=== PATIENT | female | born 1980 | race Caucasian/White ===

== ENCOUNTER 2024-10-18 09:54 | Outpatient (CLI) | payer BC, SELFPAY ==
[2024-10-18 12:26] LABS: Abs Immature Grans 0.03 10^3/uL (0.0-0.06); Absolute Basophil Count 0.03 10^3/uL (0.0-0.2); Absolute Lymphocyte Count 2.82 10^3/uL (1.2-3.4); Absolute Monocyte Count 0.53 10^3/uL (0.1-0.8); Basophils % 0.4 %; Eosinophils % 1.4 %; HCT 41.2 % (36.0-46.0); HGB 13.6 g/dL (11.2-15.7); Immature Grans % 0.4 %; Lymphocytes % 38.6 %; MCH 29.6 pg (27.0-33.0); MCV 90 fL (80-95); MPV 9.2 fL (8.0-11.0); Monocytes % 7.3 %; Neutrophils % 51.9 %; Platelet Count 338 10^3/uL (130-400); RBC 4.59 10^6/uL (3.93-5.22); RDW 11.7 % (11.7-14.6); RDW-SD 37.7 fL; WBC 7.31 10^3/uL (4.4-10.8)
[2024-10-18 12:49] LABS: ALT 26 U/L (14-59); AST 16 U/L (15-37); Albumin 3.8 g/dL (3.4-5.0); Alkaline Phosphatase 107 U/L (46-116); Anion Gap 5.8 mmol/L (3-11); BUN 4 mg/dL (7-18); CO2 30.2 mmol/L (21.0-32.0); CREATININE 0.8 mg/dL (0.55-1.02); Calcium 9.3 mg/dL (8.5-10.1); Chloride 105 mmol/L (98-107); Estimated GFR 94.28 (mL/min/1.73m2); Glucose 91 mg/dL (74-106); Potassium 4.3 mmol/L (3.5-5.1); Sodium 141 mmol/L (136-145); Total Protein 7.3 g/dL (6.4-8.2)
[2024-10-20 10:24] LABS: EBNA IgG Positive (Negative); EBV Interpretation (See Note); VCA IgG Positive (Negative); VCA IgM Negative (Negative)
== END 2024-10-18 09:55 | disposition home or self-care (01) ==
LOC: LOS 09:54
PROVIDERS: Referring Provider Nurse Practitioner Family; Visit Provider Nurse Practitioner Family
DX: B34.9 Viral infection, unspecified (principal); J02.9 Acute pharyngitis, unspecified; R59.1 Generalized enlarged lymph nodes; R59.0 Localized enlarged lymph nodes
CPT/HCPCS: 36415; 80053; 85025; 86664; 86665

== ENCOUNTER 2024-10-18 16:00 | Outpatient (REF) | payer BC, SELFPAY | END 2024-10-18 16:01 | disposition home or self-care (01) | LOC: LBN 16:00 | PROVIDERS: Visit Provider Nurse Practitioner Family | DX: J02.9 Acute pharyngitis, unspecified (principal); B34.9 Viral infection, unspecified; R59.0 Localized enlarged lymph nodes; R59.1 Generalized enlarged lymph nodes | CPT/HCPCS: 87070 ==